=== PATIENT | male | born 1985 | race African-American/Black ===

== ENCOUNTER 2019-04-08 22:24 | Emergency (ER) | payer MEDICAID ==
[~2019-04-08] VITALS: Ht 170.2 cm; Wt 61.4 kg
[2019-04-09] MEDS ORDERED: DiphenhydrAMINE HCL 25 MG CAPSULE PO ONE (02:45)
[2019-04-09] MEDS ORDERED: PredniSONE 20 MG TABLET PO ONE (02:45)
[2019-04-09 04:20] VITALS: BP 116/68
== END 2019-04-09 04:38 | disposition home or self-care (01) ==
LOC: EMS 22:26
DX: T78.40XA Allergy, unspecified, initial encounter (principal); X58.XXXA Exposure to other specified factors, initial encounter
CPT/HCPCS: 87430; 99285; J7512